=== PATIENT | male | born 1990 | race Caucasian/White ===

== ENCOUNTER 2025-07-21 01:37 | Emergency (ER) | payer SELFPAY ==
[~2025-07-21] VITALS: Ht 172.7 cm; Wt 88.0 kg
[2025-07-21 01:47] VITALS: O2SAT 98
[2025-07-21] MEDS: KETOROLAC 15MG/ML VIAL IM ONE (02:48)
[2025-07-21] MEDS: ACETAMINOPHEN 500MG TABLET PO ONE (02:53)
[2025-07-21] MEDS ORDERED: NAPR-1176 MT (04:06)
[2025-07-21 04:25] VITALS: BP 124/77; PULSE 86; RESP 18; TEMP 36.7; O2SAT 97
== END 2025-07-21 04:28 | disposition home or self-care (01) ==
LOC: ER 01:37
DX: R07.89 Other chest pain (principal)
CPT/HCPCS: 71045; 93005; 99283; J1885